=== PATIENT | female | born 1955 | race Caucasian/White ===

== ENCOUNTER 2020-08-07 05:36 | Inpatient (IN) ==
[2020-08-01 11:37] LABS: Bilirubin,Urine Negative (Negative); Blood, Urine Negative (Negative); Glucose,Urine (UA) Negative (Negative); Hyaline Casts,Urine 9 /LPF (0-3); Ketones,Urine 5 mg/dL (Negative); Mucus,Urine Occasional /LPF (Occasional); Nitrite,Urine Negative (Negative); Protein,Urine Negative; RBC,Urine 6 /HPF (0-4); Squamous Epithelial Cell,Urine Occasional /HPF (0-10); Urine Appearance Slightly Hazy (Clear); Urine Color Amber (Yellow); Urine Specific Gravity 1.029 (1.001-1.035); WBC,Urine 2 /HPF (0-6)
[2020-08-01 11:56] LABS: Basophils % 0.6 % (0.0-0.8); Eosinophils # 0.1 10*3/uL (0.0-0.87); Eosinophils % 2.2 % (0.00-10.9); Hematocrit 35.7 VOL% (35.7-47.0); Hemoglobin 10.5 GM/DL (12.0-16.0); Immature Granulocytes % 0.3 %; Immature Granulocytes Absolute 0.02 #; Lymphocytes # 2.1 10*3/uL (1.4-4.0); Lymphocytes % 32.5 % (21.3-54.2); Mean Corpuscular HGB Conc 29.4 GM/DL (32-36); Mean Corpuscular Volume 90.2 FL (87-102); Mean Platelet Volume 8.7 FL (9.6-12.0); Monocytes % 8.4 % (1.7-12.7); Platelet Count 307 T/CUMM (130-400); Red Blood Count 3.96 MC/CUMM (3.8-5.5); Red Cell Distribution Width 18.1 % (9.3-17.3); White Blood Count 6.4 T/CUMM (4-12)
[2020-08-01 11:59] LABS: PT Patient Result 11.1 SECS (9.8-11.9); Partial Thromboplastin Time 28.2 SECS (23.9-33.8)
[2020-08-01 12:13] LABS: Albumin 3.5 G/DL (3.4-5.0); Bilirubin,Total 0.6 MG/DL (0.2-1.0); Calcium 9.3 MG/DL (8.5-10.1); Osmolality,Calculated 280.4 MOS/KG (273-304); Total Protein 6.8 G/DL (6.4-8.3)
[2020-08-07] MEDS ORDERED: FAMOTIDINE 20 MG TABLET PO ONE (06:47)
[2020-08-07] MEDS ORDERED: ACETAMINOPHEN 500 MG TABLET PO ONE (06:47)
[2020-08-07] MEDS ORDERED: DIAZEPAM 5 MG TABLET PO ONE (06:47)
[2020-08-07] MEDS ORDERED: TRANEXAMIC ACID 1,000 MG/10 ML VIAL ONE (06:54)
[2020-08-07] MEDS ORDERED: DEXAMETHASONE 4 MG/1 ML VIAL ONE (06:54)
[2020-08-07] MEDS ORDERED: ROPIVACAINE 0.5% 30 ML VIAL ONE (06:54)
[2020-08-07] MEDS ORDERED: ceFAZolin 1,000 MG in SYRINGE 1 EACH IV ONE (07:00)
[2020-08-07] MEDS ORDERED: VANCOMYCIN INJ 1,000 MG in SODIUM CHLORIDE 0.9% 250 ML IV ONE ×2 (07:00→18:00)
[2020-08-07] MEDS ORDERED: LACTATED RINGERS 1,000 ML IV SCH (07:00)
[2020-08-07] MEDS ORDERED: BACITRACIN OINT 0.9 GM PACK TOP ONE (08:17)
[2020-08-07] MEDS ORDERED: MAGNESIUM HYDROXIDE SUSP 30 ML UDCUP PO PRN (10:42)
[2020-08-07] MEDS ORDERED: MORPHINE 4 MG/1 ML VIAL IV PRN (10:42)
[2020-08-07] MEDS ORDERED: diphenhydrAMINE CAP 25 MG CAPSULE PO PRN (10:42)
[2020-08-07] MEDS ORDERED: ONDANSETRON 4 MG/2 ML VIAL IV PRN ×2 (10:42→11:10)
[2020-08-07] MEDS ORDERED: fentaNYL 100 MCG/2 ML VIAL ONE ×2 (11:04)
[2020-08-07] MEDS ORDERED: LIDOCAINE 2% 5 ML VIAL ONE (11:04)
[2020-08-07] MEDS ORDERED: GLYCOPYRROLATE 0.4 MG/2 ML VIAL ONE (11:04)
[2020-08-07] MEDS ORDERED: propofoL 200 MG/20 ML VIAL IV ONE (11:04)
[2020-08-07] MEDS ORDERED: DESFLURANE 1 UNIT/15 MINUTE INH ONE (11:04)
[2020-08-07] MEDS ORDERED: MIDAZOLAM 2 MG/2 ML VIAL ONE (11:04)
[2020-08-07] MEDS ORDERED: PHENYLEPHRINE 1 MG/10 ML SYRINGE IV ONE (11:05)
[2020-08-07] MEDS ORDERED: NEOSTIGMINE 10 MG/10 ML VIAL ONE (11:05)
[2020-08-07] MEDS ORDERED: ROCURONIUM 100 MG/10 ML VIAL IV ONE (11:05)
[2020-08-07] MEDS ORDERED: SODIUM CHLORIDE 0.9% 100 ML IV ONE (11:05)
[2020-08-07] MEDS ORDERED: KETOROLAC 30 MG/1 ML VIAL IV ONE (11:10)
[2020-08-07] MEDS: HYDROmorphone 2 MG/1 ML VIAL IV PRN ×4 (11:14→12:26)
[2020-08-07 11:24] LABS: Bacteria,Urine Occasional /HPF (Few); Bilirubin,Urine Negative (Negative); Blood, Urine Negative (Negative); Glucose,Urine (UA) Negative (Negative); Ketones,Urine 5 mg/dL (Negative); Nitrite,Urine Negative (Negative); Protein,Urine 30 MG/DL; RBC,Urine 7 /HPF (0-4); Squamous Epithelial Cell,Urine Occasional /HPF (0-10); Urine Appearance CLEAR (Clear); Urine Color Amber (Yellow); Urine Specific Gravity 1.038 (1.001-1.035); WBC,Urine 3 /HPF (0-6)
[2020-08-07] MEDS: LACTATED RINGERS 1,000 ML IV SCH (14:12)
[2020-08-07] MEDS: ceFAZolin 2,000 MG in PREMIX 1 EACH IV SCH (16:25)
[2020-08-07] MEDS: KETOROLAC 30 MG/1 ML VIAL IV SCH ×2 (16:42→21:35)
[2020-08-07] MEDS: MORPHINE 4 MG/1 ML VIAL IV PRN ×2 (16:43→22:53)
[2020-08-07] MEDS: NYSTATIN 500,000 UNIT/5 ML UDCUP PO SCH ×2 (16:44→21:46)
[2020-08-07] MEDS: DULoxetine 30 MG CAPSULE PO SCH (21:41)
[2020-08-07] MEDS: DOCUSATE SODIUM 100 MG CAPSULE PO SCH (21:41)
[2020-08-07] MEDS: APIXABAN 2.5 MG TABLET PO SCH (21:42)
[2020-08-07] MEDS: carvediloL 12.5 MG TABLET PO SCH (21:42)
[2020-08-07] MEDS: GABAPENTIN 400 MG CAPSULE PO SCH (21:42)
[2020-08-07] MEDS: traZODone 50 MG TABLET PO SCH (21:42)
[2020-08-07] MEDS: PRAMIPEXOLE 0.25 MG TABLET PO SCH (21:43)
[2020-08-07] MEDS: NYSTATIN CREAM 15 GM TUBE TOP SCH (21:46)
[2020-08-07] MEDS: ZINC OXIDE 20% OINT 28.35 GM TUBE TOP SCH (21:46)
[2020-08-07] MEDS: HYDROCORTISONE 2.5% CREAM 30 GM TUBE TOP SCH (21:53)
[2020-08-08] MEDS ORDERED: ceFAZolin 2,000 MG in PREMIX 1 EACH IV SCH (03:30)
[2020-08-08] MEDS: KETOROLAC 30 MG/1 ML VIAL IV SCH ×2 (03:48→09:21)
[2020-08-08] MEDS: ceFAZolin 2,000 MG in PREMIX 1 EACH IV SCH (04:32)
[2020-08-08 04:36] LABS: Basophils % 0.1 % (0.0-0.8); Hematocrit 26.8 VOL% (35.7-47.0); Immature Granulocytes % 0.6 %; Immature Granulocytes Absolute 0.04 #; Lymphocytes # 0.9 10*3/uL (1.4-4.0); Lymphocytes % 12.7 % (21.3-54.2); Mean Corpuscular HGB Conc 29.9 GM/DL (32-36); Mean Corpuscular Volume 89.9 FL (87-102); Mean Platelet Volume 8.9 FL (9.6-12.0); Monocytes % 5.9 % (1.7-12.7); Neutrophils % 80.7 % (38.7-73.9); Platelet Count 225 T/CUMM (130-400); Red Blood Count 2.98 MC/CUMM (3.8-5.5); Red Cell Distribution Width 17.9 % (9.3-17.3); White Blood Count 7.2 T/CUMM (4-12)
[2020-08-08 05:02] LABS: Calcium 8.7 MG/DL (8.5-10.1); Osmolality,Calculated 281.4 MOS/KG (273-304)
[2020-08-08] MEDS: LEVOTHYROXINE 50 MCG TABLET PO SCH (06:04)
[2020-08-08] MEDS ORDERED: FUROSEMIDE 40 MG TABLET PO ONE (06:29)
[2020-08-08] MEDS: ASPIRIN EC 81 MG TABLET PO SCH (09:20)
[2020-08-08] MEDS: NYSTATIN CREAM 15 GM TUBE TOP SCH ×2 (09:20→20:28)
[2020-08-08] MEDS: HYDROCORTISONE 2.5% CREAM 30 GM TUBE TOP SCH ×2 (09:20→20:28)
[2020-08-08] MEDS: APIXABAN 2.5 MG TABLET PO SCH ×2 (09:20→20:30)
[2020-08-08] MEDS: AMIODARONE 200 MG TABLET PO SCH (09:20)
[2020-08-08] MEDS: DOCUSATE SODIUM 100 MG CAPSULE PO SCH ×2 (09:20→20:30)
[2020-08-08] MEDS: NYSTATIN 500,000 UNIT/5 ML UDCUP PO SCH ×4 (09:20→20:35)
[2020-08-08] MEDS: carvediloL 12.5 MG TABLET PO SCH ×2 (09:20→23:14)
[2020-08-08] MEDS: PANTOPRAZOLE 40 MG TABLET PO SCH (09:20)
[2020-08-08] MEDS: DULoxetine 30 MG CAPSULE PO SCH ×2 (09:20→20:29)
[2020-08-08] MEDS: CHOLECALCIFEROL 5,000 UNIT TABLET PO SCH (09:21)
[2020-08-08] MEDS: ZINC OXIDE 20% OINT 28.35 GM TUBE TOP SCH ×2 (09:21→20:28)
[2020-08-08] MEDS: GABAPENTIN 400 MG CAPSULE PO SCH (20:30)
[2020-08-08] MEDS: traZODone 50 MG TABLET PO SCH (20:30)
[2020-08-08] MEDS: PRAMIPEXOLE 0.25 MG TABLET PO SCH (20:30)
[2020-08-08] MEDS ORDERED: SODIUM CHLORIDE 0.9% 500 ML IV ONE (22:50)
[2020-08-08 23:33] LABS: Hematocrit 26.2 VOL% (35.7-47.0); Hemoglobin 7.8 GM/DL (12.0-16.0)
[2020-08-09] MEDS: ACETAMINOPHEN 325 MG TABLET PO PRN ×4 (00:11→22:57)
[2020-08-09] MEDS ORDERED: SODIUM CHLORIDE 0.9% 1,000 ML IV PRN (01:43)
[2020-08-09] MEDS ORDERED: FUROSEMIDE 40 MG/4 ML VIAL IV ONE ×2 (01:45→07:30)
[2020-08-09] MEDS: LEVOTHYROXINE 50 MCG TABLET PO SCH (07:19)
[2020-08-09] MEDS: ZINC OXIDE 20% OINT 28.35 GM TUBE TOP SCH ×2 (09:51→21:22)
[2020-08-09] MEDS: NYSTATIN CREAM 15 GM TUBE TOP SCH ×2 (09:51→21:22)
[2020-08-09] MEDS: HYDROCORTISONE 2.5% CREAM 30 GM TUBE TOP SCH ×2 (09:51→21:22)
[2020-08-09] MEDS: DULoxetine 30 MG CAPSULE PO SCH ×2 (09:52→21:21)
[2020-08-09] MEDS: CHOLECALCIFEROL 5,000 UNIT TABLET PO SCH (09:52)
[2020-08-09] MEDS: NYSTATIN 500,000 UNIT/5 ML UDCUP PO SCH ×4 (09:52→21:21)
[2020-08-09] MEDS: DOCUSATE SODIUM 100 MG CAPSULE PO SCH ×2 (09:52→21:22)
[2020-08-09] MEDS: ASPIRIN EC 81 MG TABLET PO SCH (09:53)
[2020-08-09] MEDS: AMIODARONE 200 MG TABLET PO SCH (09:53)
[2020-08-09] MEDS: PANTOPRAZOLE 40 MG TABLET PO SCH (09:53)
[2020-08-09] MEDS: APIXABAN 2.5 MG TABLET PO SCH ×2 (09:54→21:23)
[2020-08-09] MEDS: carvediloL 12.5 MG TABLET PO SCH ×2 (11:47→21:22)
[2020-08-09] MEDS: LACTATED RINGERS 1,000 ML IV SCH (11:48)
[2020-08-09 12:52] LABS: Basophils % 0.3 % (0.0-0.8); Eosinophils % 0.6 % (0.00-10.9); Hematocrit 31.7 VOL% (35.7-47.0); Hemoglobin 9.6 GM/DL (12.0-16.0); Immature Granulocytes % 0.3 %; Immature Granulocytes Absolute 0.02 #; Lymphocytes # 1.5 10*3/uL (1.4-4.0); Mean Corpuscular HGB Conc 30.3 GM/DL (32-36); Mean Corpuscular Volume 91.4 FL (87-102); Mean Platelet Volume 8.6 FL (9.6-12.0); Neutrophils % 65.8 % (38.7-73.9); Platelet Count 236 T/CUMM (130-400); Red Blood Count 3.47 MC/CUMM (3.8-5.5); Red Cell Distribution Width 17.7 % (9.3-17.3); White Blood Count 6.2 T/CUMM (4-12)
[2020-08-09 13:10] LABS: Calcium 8.3 MG/DL (8.5-10.1); Osmolality,Calculated 282.7 MOS/KG (273-304)
[2020-08-09] MEDS: GABAPENTIN 400 MG CAPSULE PO SCH (21:21)
[2020-08-09] MEDS: traZODone 50 MG TABLET PO SCH (21:21)
[2020-08-09] MEDS: PRAMIPEXOLE 0.25 MG TABLET PO SCH (21:23)
[2020-08-10 04:16] LABS: Basophils % 0.5 % (0.0-0.8); Eosinophils # 0.1 10*3/uL (0.0-0.87); Eosinophils % 1.3 % (0.00-10.9); Hematocrit 30.1 VOL% (35.7-47.0); Hemoglobin 9.2 GM/DL (12.0-16.0); Immature Granulocytes % 0.3 %; Immature Granulocytes Absolute 0.02 #; Lymphocytes # 1.6 10*3/uL (1.4-4.0); Lymphocytes % 25.3 % (21.3-54.2); Mean Corpuscular HGB Conc 30.6 GM/DL (32-36); Mean Corpuscular Volume 89.6 FL (87-102); Mean Platelet Volume 8.6 FL (9.6-12.0); Monocytes % 9.8 % (1.7-12.7); Neutrophils % 62.8 % (38.7-73.9); Platelet Count 230 T/CUMM (130-400); Red Blood Count 3.36 MC/CUMM (3.8-5.5); Red Cell Distribution Width 17.5 % (9.3-17.3); White Blood Count 6.2 T/CUMM (4-12)
[2020-08-10] MEDS: LEVOTHYROXINE 50 MCG TABLET PO SCH (05:33)
[2020-08-10] MEDS: ASPIRIN EC 81 MG TABLET PO SCH (09:14)
[2020-08-10] MEDS: DOCUSATE SODIUM 100 MG CAPSULE PO SCH ×2 (09:14→21:30)
[2020-08-10] MEDS: carvediloL 12.5 MG TABLET PO SCH ×2 (09:14→21:30)
[2020-08-10] MEDS: AMIODARONE 200 MG TABLET PO SCH (09:14)
[2020-08-10] MEDS: APIXABAN 2.5 MG TABLET PO SCH ×2 (09:15→21:30)
[2020-08-10] MEDS: NYSTATIN 500,000 UNIT/5 ML UDCUP PO SCH ×4 (09:15→21:29)
[2020-08-10] MEDS: PANTOPRAZOLE 40 MG TABLET PO SCH (09:15)
[2020-08-10] MEDS: CHOLECALCIFEROL 5,000 UNIT TABLET PO SCH (09:15)
[2020-08-10] MEDS: DULoxetine 30 MG CAPSULE PO SCH ×2 (09:15→21:30)
[2020-08-10] MEDS: ZINC OXIDE 20% OINT 28.35 GM TUBE TOP SCH ×2 (11:48→21:30)
[2020-08-10] MEDS: HYDROCORTISONE 2.5% CREAM 30 GM TUBE TOP SCH ×2 (11:49→21:30)
[2020-08-10] MEDS: NYSTATIN CREAM 15 GM TUBE TOP SCH ×2 (11:49→21:30)
[2020-08-10] MEDS: PRAMIPEXOLE 0.25 MG TABLET PO SCH (21:30)
[2020-08-10] MEDS: traZODone 50 MG TABLET PO SCH (21:30)
[2020-08-10] MEDS: GABAPENTIN 400 MG CAPSULE PO SCH (21:30)
[2020-08-10] MEDS: ACETAMINOPHEN 325 MG TABLET PO PRN (21:37)
[2020-08-11] MEDS: LEVOTHYROXINE 50 MCG TABLET PO SCH (05:33)
[2020-08-11] MEDS: DOCUSATE SODIUM 100 MG CAPSULE PO SCH (09:48)
[2020-08-11] MEDS: ASPIRIN EC 81 MG TABLET PO SCH (09:48)
[2020-08-11] MEDS: DULoxetine 30 MG CAPSULE PO SCH (09:49)
[2020-08-11] MEDS: AMIODARONE 200 MG TABLET PO SCH (09:49)
[2020-08-11] MEDS: carvediloL 12.5 MG TABLET PO SCH (09:49)
[2020-08-11] MEDS: CHOLECALCIFEROL 5,000 UNIT TABLET PO SCH (09:50)
[2020-08-11] MEDS: APIXABAN 2.5 MG TABLET PO SCH (09:50)
[2020-08-11] MEDS: PANTOPRAZOLE 40 MG TABLET PO SCH (09:50)
[2020-08-11] MEDS: NYSTATIN 500,000 UNIT/5 ML UDCUP PO SCH ×2 (09:50→12:55)
[2020-08-11] MEDS: ZINC OXIDE 20% OINT 28.35 GM TUBE TOP SCH (09:53)
[2020-08-11] MEDS: NYSTATIN CREAM 15 GM TUBE TOP SCH (09:53)
[2020-08-11] MEDS: HYDROCORTISONE 2.5% CREAM 30 GM TUBE TOP SCH (09:53)
[2020-08-11] MEDS ORDERED: FLUCONAZOLE 150 MG TABLET PO SCH (11:00)
[2020-08-11 15:02] VITALS: BP 123/59
== END 2020-08-11 14:20 | disposition home health service (06) | DRG 470 ==
LOC: N.OR 05:36 → N.SDSINP 05:37 → N.3E 14:37
PROVIDERS: ADMIT Orthopaedic Surgery; ATTEND Orthopaedic Surgery

== ENCOUNTER 2020-12-25 17:18 | Inpatient (IN) ==
[2020-12-25] MEDS ORDERED: ONDANSETRON 4 MG/2 ML VIAL ONE (18:03)
[2020-12-25] MEDS ORDERED: ONDANSETRON 4 MG/2 ML VIAL IV STA (18:08)
[2020-12-25] MEDS ORDERED: LORazepam 2 MG/1 ML VIAL IV STA (18:14)
[2020-12-25] MEDS ORDERED: SODIUM CHLORIDE 0.9% 1,000 ML IV STA (18:15)
[2020-12-25 18:49] LABS: Basophils % 0.2 % (0.0-0.8); Eosinophils % 0.2 % (0.00-10.9); Hematocrit 37.2 VOL% (35.7-47.0); Hemoglobin 11.4 GM/DL (12.0-16.0); Immature Granulocytes % 0.8 %; Immature Granulocytes Absolute 0.05 #; Lymphocytes # 0.7 10*3/uL (1.4-4.0); Lymphocytes % 11.6 % (21.3-54.2); Mean Corpuscular HGB Conc 30.6 GM/DL (32-36); Mean Corpuscular Volume 95.1 FL (87-102); Mean Platelet Volume 8.2 FL (9.6-12.0); Monocytes % 4.7 % (1.7-12.7); Neutrophils % 82.5 % (38.7-73.9); Platelet Count 234 T/CUMM (130-400); Red Blood Count 3.91 MC/CUMM (3.8-5.5); Red Cell Distribution Width 17.2 % (9.3-17.3); White Blood Count 6.1 T/CUMM (4-12)
[2020-12-25 19:10] LABS: Albumin 3.1 G/DL (3.4-5.0); Calcium 9.1 MG/DL (8.5-10.1); Osmolality,Calculated 277.7 MOS/KG (273-304); Potassium 3.8 MMOL/L (3.5-5.1); Total Protein 6.8 G/DL (5.0-7.5)
[2020-12-25] MEDS ORDERED: PROMETHAZINE 25 MG/1 ML VIAL IM STA (19:17)
[2020-12-25] MEDS ORDERED: METOCLOPRAMIDE 10 MG/2 ML VIAL IV STA (20:10)
[2020-12-25] MEDS ORDERED: diphenhydrAMINE 50 MG/1 ML VIAL IV STA (20:10)
[2020-12-25] MEDS ORDERED: DEXAMETHASONE 4 MG/1 ML VIAL IV STA (20:10)
[2020-12-25 21:54] LABS: Bilirubin,Urine Negative (Negative); Blood, Urine Moderate mg/dL (Negative); Glucose,Urine (UA) Negative (Negative); Ketones,Urine 20 mg/dL (Negative); Mucus,Urine Few /LPF (Occasional); Nitrite,Urine Negative (Negative); Protein,Urine 30 MG/DL; RBC,Urine 45 /HPF (0-4); Squamous Epithelial Cell,Urine Occasional /HPF (0-10); Urine Appearance CLOUDY (Clear); Urine Color Amber (Yellow); Urine Specific Gravity 1.023 (1.001-1.035)
[2020-12-25] MEDS ORDERED: PROMETHAZINE INJ 12.5 MG in SODIUM CHLORIDE 0.9% 50 ML IV STA (22:07)
[2020-12-26] MEDS: PHENOL 1.4% THROAT SPRAY 177 ML BOTTLE PO PRN ×3 (00:37→05:03)
[2020-12-26] MEDS: SODIUM CHLORIDE 0.45% 1,000 ML IV SCH ×3 (00:38→12:04)
[2020-12-26] MEDS: PANTOPRAZOLE 40 MG TABLET PO SCH (08:13)
[2020-12-26] MEDS ORDERED: INFLUENZA VIRUS VACCINE 0.5 ML SYRINGE IM ONE (09:00)
[2020-12-26] MEDS ORDERED: DULoxetine 30 MG CAPSULE PO SCH (10:30)
[2020-12-26] MEDS ORDERED: carvediloL 12.5 MG TABLET PO SCH (10:30)
[2020-12-26] MEDS ORDERED: AMIODARONE 200 MG TABLET PO SCH (10:30)
[2020-12-26] MEDS: HYDROmorphone 2 MG/1 ML VIAL IV PRN ×2 (11:16→18:23)
[2020-12-26 11:51] LABS: Thyroid Stimulating Hormone 3.4 uIU/ml (0.358-3.74)
[2020-12-26] MEDS ORDERED: METOPROLOL TARTRATE 5 MG/5 ML VIAL IV PRN (12:52)
[2020-12-26] MEDS ORDERED: hydrALAZINE 20 MG/1 ML VIAL IV PRN (17:30)
[2020-12-26 17:55] LABS: Risk Ratio 1.95; VLDL CHOLESTEROL 15.8 MG/DL
[2020-12-27] MEDS: SODIUM CHLORIDE 0.45% 1,000 ML IV SCH ×3 (00:35→15:49)
[2020-12-27 05:48] LABS: Basophils % 0.3 % (0.0-0.8); Eosinophils % 0.1 % (0.00-10.9); Hematocrit 38.1 VOL% (35.7-47.0); Hemoglobin 11.9 GM/DL (12.0-16.0); Immature Granulocytes Absolute 0.08 #; Lymphocytes # 1.3 10*3/uL (1.4-4.0); Lymphocytes % 17.4 % (21.3-54.2); Mean Corpuscular HGB Conc 31.2 GM/DL (32-36); Mean Corpuscular Volume 94.3 FL (87-102); Mean Platelet Volume 8.4 FL (9.6-12.0); Monocytes % 10.3 % (1.7-12.7); Neutrophils % 70.9 % (38.7-73.9); Platelet Count 256 T/CUMM (130-400); Red Blood Count 4.04 MC/CUMM (3.8-5.5); Red Cell Distribution Width 17.5 % (9.3-17.3); White Blood Count 7.7 T/CUMM (4-12)
[2020-12-27 06:07] LABS: Albumin 2.6 G/DL (3.4-5.0); Bilirubin,Total 1.6 MG/DL (0.2-1.0); Calcium 8.4 MG/DL (8.5-10.1); Osmolality,Calculated 276.7 MOS/KG (273-304); Potassium 3.7 MMOL/L (3.5-5.1); Total Protein 5.9 G/DL (5.0-7.5)
[2020-12-27] MEDS ORDERED: LEVOTHYROXINE 50 MCG TABLET PO SCH (07:00)
[2020-12-27] MEDS ORDERED: MAGNESIUM SULF RIDER 4 GM in PREMIX 1 EACH IV PRN (07:16)
[2020-12-27] MEDS ORDERED: MAGNESIUM SULF RIDER 2 GM in PREMIX 1 EACH IV PRN (07:16)
[2020-12-27] MEDS: PANTOPRAZOLE 40 MG TABLET PO SCH (08:05)
[2020-12-27] MEDS: HYDROmorphone 2 MG/1 ML VIAL IV PRN (10:28)
[2020-12-27] MEDS: ONDANSETRON 4 MG/2 ML VIAL IV PRN (10:40)
[2020-12-27] MEDS: PANTOPRAZOLE 40 MG VIAL IV SCH ×2 (11:34→21:40)
[2020-12-28] MEDS: ONDANSETRON 4 MG/2 ML VIAL IV PRN ×2 (00:37→22:00)
[2020-12-28] MEDS: SODIUM CHLORIDE 0.45% 1,000 ML IV SCH ×2 (00:38→09:28)
[2020-12-28 06:14] LABS: Calcium 8.3 MG/DL (8.5-10.1); Osmolality,Calculated 273.7 MOS/KG (273-304); Potassium 3.6 MMOL/L (3.5-5.1)
[2020-12-28] MEDS: PANTOPRAZOLE 40 MG VIAL IV SCH ×2 (09:29→21:17)
[2020-12-28] MEDS ORDERED: diphenhydrAMINE 50 MG/1 ML VIAL IV PRN (10:42)
[2020-12-28] MEDS: DEXT 5% NACL 0.45% KCL 10 MEQ 10 MEQ/1,000 ML BAG IV SCH ×2 (12:15→21:01)
[2020-12-28] MEDS: ENOXAPARIN 100 MG/ML SYRINGE SUBCUT SCH ×2 (12:16→23:59)
[2020-12-28] MEDS: traZODone 50 MG TABLET PO SCH (21:06)
[2020-12-29 04:27] LABS: Basophils % 0.4 % (0.0-0.8); Eosinophils # 0.1 10*3/uL (0.0-0.87); Eosinophils % 0.9 % (0.00-10.9); Hematocrit 37.6 VOL% (35.7-47.0); Hemoglobin 11.5 GM/DL (12.0-16.0); Immature Granulocytes % 0.9 %; Immature Granulocytes Absolute 0.06 #; Lymphocytes # 1.5 10*3/uL (1.4-4.0); Lymphocytes % 22.3 % (21.3-54.2); Mean Corpuscular HGB Conc 30.6 GM/DL (32-36); Mean Corpuscular Volume 94.2 FL (87-102); Mean Platelet Volume 8.6 FL (9.6-12.0); Monocytes % 9.8 % (1.7-12.7); Neutrophils % 65.7 % (38.7-73.9); Platelet Count 279 T/CUMM (130-400); Red Blood Count 3.99 MC/CUMM (3.8-5.5); Red Cell Distribution Width 17.4 % (9.3-17.3); White Blood Count 6.7 T/CUMM (4-12)
[2020-12-29] MEDS: DEXT 5% NACL 0.45% KCL 10 MEQ 10 MEQ/1,000 ML BAG IV SCH ×3 (04:45→21:11)
[2020-12-29 04:56] LABS: Albumin 2.4 G/DL (3.4-5.0); Calcium 8.4 MG/DL (8.5-10.1); Osmolality,Calculated 274.7 MOS/KG (273-304); Potassium 3.5 MMOL/L (3.5-5.1); Total Protein 5.6 G/DL (5.0-7.5)
[2020-12-29] MEDS: PANTOPRAZOLE 40 MG VIAL IV SCH ×2 (08:22→20:15)
[2020-12-29] MEDS: ONDANSETRON 4 MG/2 ML VIAL IV PRN (08:23)
[2020-12-29] MEDS ORDERED: AMIODARONE 200 MG TABLET PO SCH (12:33)
[2020-12-29] MEDS: ENOXAPARIN 100 MG/ML SYRINGE SUBCUT SCH (12:38)
[2020-12-29] MEDS: traZODone 50 MG TABLET PO SCH (20:15)
[2020-12-30] MEDS: ENOXAPARIN 100 MG/ML SYRINGE SUBCUT SCH (00:27)
[2020-12-30] MEDS: DEXT 5% NACL 0.45% KCL 10 MEQ 10 MEQ/1,000 ML BAG IV SCH (05:32)
[2020-12-30 05:52] LABS: Basophils # 0.1 10*3/uL (0.0-0.2); Basophils % 0.8 % (0.0-0.8); Eosinophils # 0.1 10*3/uL (0.0-0.87); Eosinophils % 2.2 % (0.00-10.9); Hematocrit 36.2 VOL% (35.7-47.0); Hemoglobin 11.2 GM/DL (12.0-16.0); Immature Granulocytes % 0.8 %; Immature Granulocytes Absolute 0.05 #; Lymphocytes # 1.6 10*3/uL (1.4-4.0); Lymphocytes % 26.8 % (21.3-54.2); Mean Corpuscular HGB Conc 30.9 GM/DL (32-36); Mean Corpuscular Volume 94.5 FL (87-102); Mean Platelet Volume 8.8 FL (9.6-12.0); Monocytes % 9.6 % (1.7-12.7); Neutrophils % 59.8 % (38.7-73.9); Platelet Count 276 T/CUMM (130-400); Red Blood Count 3.83 MC/CUMM (3.8-5.5)
[2020-12-30 06:16] LABS: Albumin 2.3 G/DL (3.4-5.0); Bilirubin,Total 0.7 MG/DL (0.2-1.0); Calcium 8.3 MG/DL (8.5-10.1); Osmolality,Calculated 282.1 MOS/KG (273-304); Potassium 3.7 MMOL/L (3.5-5.1); Total Protein 5.4 G/DL (5.0-7.5)
[2020-12-30] MEDS: PANTOPRAZOLE 40 MG VIAL IV SCH (08:34)
[2020-12-30] MEDS ORDERED: AMIODARONE 200 MG TABLET PO SCH (09:00)
[2020-12-30 12:14] VITALS: BP 139/81
[2020-12-30] MEDS ORDERED: carvediloL 12.5 MG TABLET PO SCH (21:00)
[2020-12-30] MEDS ORDERED: PRAMIPEXOLE 0.25 MG TABLET PO SCH (21:00)
[2020-12-30] MEDS ORDERED: APIXABAN 5 MG TABLET PO SCH (21:00)
[2020-12-31] MEDS ORDERED: ASPIRIN EC 81 MG TABLET PO SCH (09:00)
== END 2020-12-30 15:15 | disposition home or self-care (01) | DRG 389 ==
LOC: N.ED 17:18 → N.EDINP 20:57 → N.3E 12-26 00:01
PROVIDERS: ADMIT Surgery; ATTEND Surgery

== ENCOUNTER 2021-01-09 15:31 | Inpatient (IN) ==
[2021-01-09] MEDS ORDERED: ONDANSETRON 4 MG/2 ML VIAL IV STA (16:07)
[2021-01-09] MEDS ORDERED: HYDROmorphone 2 MG/1 ML VIAL IV STA (16:07)
[2021-01-09] MEDS ORDERED: KETOROLAC 30 MG/1 ML VIAL IV STA (16:07)
[2021-01-09 16:34] LABS: Basophils # 0.1 10*3/uL (0.0-0.2); Basophils % 1.1 % (0.0-0.8); Eosinophils # 0.1 10*3/uL (0.0-0.87); Eosinophils % 1.3 % (0.00-10.9); Hematocrit 42.6 VOL% (35.7-47.0); Hemoglobin 13.3 GM/DL (12.0-16.0); Immature Granulocytes % 0.3 %; Immature Granulocytes Absolute 0.02 #; Lymphocytes # 2.4 10*3/uL (1.4-4.0); Lymphocytes % 37.2 % (21.3-54.2); Mean Corpuscular HGB Conc 31.2 GM/DL (32-36); Mean Corpuscular Volume 95.1 FL (87-102); Mean Platelet Volume 8.3 FL (9.6-12.0); Neutrophils % 52.1 % (38.7-73.9); Platelet Count 356 T/CUMM (130-400); Red Blood Count 4.48 MC/CUMM (3.8-5.5); Red Cell Distribution Width 18.6 % (9.3-17.3); White Blood Count 6.4 T/CUMM (4-12)
[2021-01-09 16:48] LABS: Albumin 3.5 G/DL (3.4-5.0); Bilirubin,Total 0.8 MG/DL (0.2-1.0); Calcium 9.2 MG/DL (8.5-10.1); Potassium 5.4 MMOL/L (3.5-5.1); Total Protein 6.9 G/DL (6.4-8.2)
[2021-01-09] MEDS ORDERED: DEXTROSE 50% 25 GM/50 ML VIAL IV PRN (18:05)
[2021-01-09] MEDS ORDERED: GLUCAGON 1 MG VIAL IM PRN (18:05)
[2021-01-09] MEDS: DULoxetine 30 MG CAPSULE PO SCH (21:59)
[2021-01-09] MEDS: carvediloL 12.5 MG TABLET PO SCH (22:00)
[2021-01-09] MEDS: PRAMIPEXOLE 0.25 MG TABLET PO SCH (22:00)
[2021-01-09] MEDS: HYDROmorphone 2 MG/1 ML VIAL IV PRN (22:00)
[2021-01-09] MEDS: FUROSEMIDE 40 MG TABLET PO SCH (22:00)
[2021-01-09] MEDS: ONDANSETRON 4 MG/2 ML VIAL IV PRN (22:02)
[2021-01-10] MEDS: ALUMINUM/MAGNES/SIMETH MAX STR 30 ML UDCUP PO PRN ×2 (03:13→21:09)
[2021-01-10] MEDS: ONDANSETRON 4 MG/2 ML VIAL IV PRN ×4 (05:40→21:10)
[2021-01-10] MEDS: HYDROmorphone 2 MG/1 ML VIAL IV PRN ×4 (05:42→21:12)
[2021-01-10 06:08] LABS: Albumin 2.7 G/DL (3.4-5.0); Bilirubin,Total 0.8 MG/DL (0.2-1.0); Calcium 8.7 MG/DL (8.5-10.1); Osmolality,Calculated 273.1 MOS/KG (273-304); Potassium 4.2 MMOL/L (3.5-5.1); Total Protein 6.2 G/DL (6.4-8.2)
[2021-01-10 06:14] LABS: Basophils % 0.6 % (0.0-0.8); Eosinophils # 0.1 10*3/uL (0.0-0.87); Eosinophils % 1.2 % (0.00-10.9); Hematocrit 38.7 VOL% (35.7-47.0); Hemoglobin 11.5 GM/DL (12.0-16.0); Immature Granulocytes % 0.6 %; Immature Granulocytes Absolute 0.04 #; Lymphocytes # 1.6 10*3/uL (1.4-4.0); Lymphocytes % 23.8 % (21.3-54.2); Mean Corpuscular HGB Conc 29.7 GM/DL (32-36); Mean Platelet Volume 8.4 FL (9.6-12.0); Monocytes % 9.5 % (1.7-12.7); Neutrophils % 64.3 % (38.7-73.9); Platelet Count 346 T/CUMM (130-400); Red Blood Count 3.91 MC/CUMM (3.8-5.5); Red Cell Distribution Width 18.3 % (9.3-17.3); White Blood Count 6.7 T/CUMM (4-12)
[2021-01-10] MEDS: LEVOTHYROXINE 50 MCG TABLET PO SCH (06:26)
[2021-01-10] MEDS: carvediloL 12.5 MG TABLET PO SCH ×2 (08:49→21:10)
[2021-01-10] MEDS: SODIUM CHLORIDE 0.9% 1,000 ML IV SCH ×2 (09:16→17:11)
[2021-01-10] MEDS: AMIODARONE 200 MG TABLET PO SCH (09:17)
[2021-01-10] MEDS: CHOLECALCIFEROL 5,000 UNIT TABLET PO SCH (09:17)
[2021-01-10] MEDS: DULoxetine 30 MG CAPSULE PO SCH ×2 (09:17→21:10)
[2021-01-10] MEDS: ASPIRIN EC 81 MG TABLET PO SCH (09:17)
[2021-01-10] MEDS: POLYETHYLENE GLYCOL POWDER 17 GM PACK PO SCH (21:09)
[2021-01-10] MEDS: PRAMIPEXOLE 0.25 MG TABLET PO SCH (21:10)
[2021-01-10] MEDS: DOCUSATE SODIUM 100 MG CAPSULE PO SCH (21:10)
[2021-01-11] MEDS: SODIUM CHLORIDE 0.9% 1,000 ML IV SCH ×2 (04:48→12:24)
[2021-01-11] MEDS: HYDROmorphone 2 MG/1 ML VIAL IV PRN ×5 (04:48→20:56)
[2021-01-11] MEDS: ONDANSETRON 4 MG/2 ML VIAL IV PRN ×5 (04:49→20:57)
[2021-01-11] MEDS: LEVOTHYROXINE 50 MCG TABLET PO SCH (06:45)
[2021-01-11] MEDS: CHOLECALCIFEROL 5,000 UNIT TABLET PO SCH (08:49)
[2021-01-11] MEDS: DULoxetine 30 MG CAPSULE PO SCH ×2 (08:49→20:54)
[2021-01-11] MEDS: AMIODARONE 200 MG TABLET PO SCH (08:49)
[2021-01-11] MEDS: ASPIRIN EC 81 MG TABLET PO SCH (08:49)
[2021-01-11] MEDS: carvediloL 12.5 MG TABLET PO SCH ×2 (08:49→20:55)
[2021-01-11] MEDS: POLYETHYLENE GLYCOL POWDER 17 GM PACK PO SCH ×2 (08:49→20:55)
[2021-01-11] MEDS: DOCUSATE SODIUM 100 MG CAPSULE PO SCH (20:55)
[2021-01-11] MEDS: PRAMIPEXOLE 0.25 MG TABLET PO SCH (20:55)
[2021-01-11] MEDS: ALUMINUM/MAGNES/SIMETH MAX STR 30 ML UDCUP PO PRN (21:01)
[2021-01-11] MEDS: traZODone 50 MG TABLET PO SCH (21:44)
[2021-01-11] MEDS: NYSTATIN 500,000 UNIT/5 ML UDCUP SWISH/SWAL SCH (21:44)
[2021-01-12] MEDS: SODIUM CHLORIDE 0.9% 1,000 ML IV SCH ×2 (04:19→16:01)
[2021-01-12] MEDS: ONDANSETRON 4 MG/2 ML VIAL IV PRN (04:20)
[2021-01-12] MEDS: HYDROmorphone 2 MG/1 ML VIAL IV PRN ×4 (04:20→21:33)
[2021-01-12] MEDS: LEVOTHYROXINE 50 MCG TABLET PO SCH (06:04)
[2021-01-12] MEDS: ASPIRIN EC 81 MG TABLET PO SCH (08:14)
[2021-01-12] MEDS: AMIODARONE 200 MG TABLET PO SCH (08:15)
[2021-01-12] MEDS: CHOLECALCIFEROL 5,000 UNIT TABLET PO SCH (08:15)
[2021-01-12] MEDS: carvediloL 12.5 MG TABLET PO SCH (08:28)
[2021-01-12] MEDS: DULoxetine 30 MG CAPSULE PO SCH ×2 (08:29→20:54)
[2021-01-12] MEDS: NYSTATIN 500,000 UNIT/5 ML UDCUP SWISH/SWAL SCH ×4 (08:30→20:55)
[2021-01-12] MEDS: POLYETHYLENE GLYCOL POWDER 17 GM PACK PO SCH ×2 (08:30→20:57)
[2021-01-12] MEDS ORDERED: HYDROmorphone 2 MG/1 ML VIAL IV ONE (11:15)
[2021-01-12] MEDS ORDERED: LACTULOSE 20 GM/30 ML UDCUP PO PRN (11:18)
[2021-01-12] MEDS ORDERED: ENOXAPARIN 80 MG/0.8 ML SYRINGE SUBCUT ONE (12:00)
[2021-01-12] MEDS: DOCUSATE SODIUM 100 MG CAPSULE PO SCH (20:53)
[2021-01-12] MEDS: traZODone 50 MG TABLET PO SCH (20:54)
[2021-01-12] MEDS: carvediloL 6.25 MG TABLET PO SCH (20:55)
[2021-01-12] MEDS: PRAMIPEXOLE 0.25 MG TABLET PO SCH (20:55)
[2021-01-13] MEDS: SODIUM CHLORIDE 0.9% 1,000 ML IV SCH ×2 (01:34→13:57)
[2021-01-13] MEDS: ALUMINUM/MAGNES/SIMETH MAX STR 30 ML UDCUP PO PRN (01:36)
[2021-01-13] MEDS: LEVOTHYROXINE 50 MCG TABLET PO SCH (06:22)
[2021-01-13] MEDS: HYDROmorphone 2 MG/1 ML VIAL IV PRN ×4 (06:23→21:12)
[2021-01-13] MEDS: NYSTATIN 500,000 UNIT/5 ML UDCUP SWISH/SWAL SCH ×4 (08:44→21:14)
[2021-01-13] MEDS: ASPIRIN EC 81 MG TABLET PO SCH (08:44)
[2021-01-13] MEDS: DULoxetine 30 MG CAPSULE PO SCH ×2 (08:44→21:12)
[2021-01-13] MEDS: AMIODARONE 200 MG TABLET PO SCH (08:45)
[2021-01-13] MEDS: CHOLECALCIFEROL 5,000 UNIT TABLET PO SCH (08:45)
[2021-01-13] MEDS: carvediloL 6.25 MG TABLET PO SCH ×2 (08:45→21:12)
[2021-01-13] MEDS: POLYETHYLENE GLYCOL POWDER 17 GM PACK PO SCH ×2 (08:46→21:11)
[2021-01-13 12:23] LABS: Basophils # 0.1 10*3/uL (0.0-0.2); Basophils % 1.2 % (0.0-0.8); Eosinophils # 0.1 10*3/uL (0.0-0.87); Eosinophils % 2.1 % (0.00-10.9); Hematocrit 34.1 VOL% (35.7-47.0); Hemoglobin 10.4 GM/DL (12.0-16.0); Immature Granulocytes % 0.7 %; Immature Granulocytes Absolute 0.03 #; Lymphocytes # 1.2 10*3/uL (1.4-4.0); Lymphocytes % 29.2 % (21.3-54.2); Mean Corpuscular HGB Conc 30.5 GM/DL (32-36); Mean Corpuscular Volume 96.9 FL (87-102); Mean Platelet Volume 8.5 FL (9.6-12.0); Neutrophils % 58.8 % (38.7-73.9); Platelet Count 292 T/CUMM (130-400); Red Blood Count 3.52 MC/CUMM (3.8-5.5); Red Cell Distribution Width 18.4 % (9.3-17.3); White Blood Count 4.2 T/CUMM (4-12)
[2021-01-13 12:38] LABS: Calcium 8.6 MG/DL (8.5-10.1); Osmolality,Calculated 277.5 MOS/KG (273-304); Potassium 4.5 MMOL/L (3.5-5.1)
[2021-01-13] MEDS: ONDANSETRON 4 MG/2 ML VIAL IV PRN ×2 (14:48→21:12)
[2021-01-13] MEDS: DOCUSATE SODIUM 100 MG CAPSULE PO SCH (21:12)
[2021-01-13] MEDS: PRAMIPEXOLE 0.25 MG TABLET PO SCH (21:12)
[2021-01-13] MEDS: traZODone 50 MG TABLET PO SCH (21:12)
[2021-01-14] MEDS: HYDROmorphone 2 MG/1 ML VIAL IV PRN ×6 (03:11→22:17)
[2021-01-14] MEDS: ONDANSETRON 4 MG/2 ML VIAL IV PRN ×3 (03:11→22:15)
[2021-01-14 05:53] LABS: Basophils # 0.1 10*3/uL (0.0-0.2); Eosinophils # 0.2 10*3/uL (0.0-0.87); Eosinophils % 3.4 % (0.00-10.9); Hematocrit 33.6 VOL% (35.7-47.0); Immature Granulocytes % 0.4 %; Immature Granulocytes Absolute 0.02 #; Lymphocytes # 1.9 10*3/uL (1.4-4.0); Lymphocytes % 38.2 % (21.3-54.2); Mean Corpuscular HGB Conc 29.8 GM/DL (32-36); Mean Corpuscular Volume 99.7 FL (87-102); Mean Platelet Volume 8.5 FL (9.6-12.0); Monocytes % 9.7 % (1.7-12.7); Neutrophils % 47.3 % (38.7-73.9); Platelet Count 288 T/CUMM (130-400); Red Blood Count 3.37 MC/CUMM (3.8-5.5); Red Cell Distribution Width 18.5 % (9.3-17.3); White Blood Count 5.1 T/CUMM (4-12)
[2021-01-14 06:21] LABS: Albumin 2.6 G/DL (3.4-5.0); Calcium 8.7 MG/DL (8.5-10.1); Osmolality,Calculated 277.5 MOS/KG (273-304); Potassium 4.2 MMOL/L (3.5-5.1); Total Protein 5.5 G/DL (6.4-8.2)
[2021-01-14] MEDS: NYSTATIN 500,000 UNIT/5 ML UDCUP SWISH/SWAL SCH ×4 (09:06→22:15)
[2021-01-14] MEDS: DULoxetine 30 MG CAPSULE PO SCH ×2 (09:07→22:15)
[2021-01-14] MEDS: LEVOTHYROXINE 50 MCG TABLET PO SCH (09:07)
[2021-01-14] MEDS: AMIODARONE 200 MG TABLET PO SCH (09:07)
[2021-01-14] MEDS: CHOLECALCIFEROL 5,000 UNIT TABLET PO SCH (09:07)
[2021-01-14] MEDS: carvediloL 6.25 MG TABLET PO SCH ×2 (09:07→22:15)
[2021-01-14] MEDS: POLYETHYLENE GLYCOL POWDER 17 GM PACK PO SCH ×2 (09:09→22:15)
[2021-01-14] MEDS: ASPIRIN EC 81 MG TABLET PO SCH (09:09)
[2021-01-14] MEDS ORDERED: ROPIVACAINE 0.5% 30 ML VIAL ONE (11:16)
[2021-01-14] MEDS ORDERED: TISSUE ADHESIVE 1 EACH APPLICATOR TOP ONE (11:19)
[2021-01-14] MEDS ORDERED: KETAMINE 500 MG/10 ML VIAL ONE (11:24)
[2021-01-14] MEDS ORDERED: MIDAZOLAM 2 MG/2 ML VIAL ONE ×2 (11:24→12:13)
[2021-01-14] MEDS ORDERED: DEXMEDETOMIDINE 200 MCG/2 ML VIAL ONE (12:11)
[2021-01-14] MEDS ORDERED: propofoL 200 MG/20 ML VIAL IV ONE (12:12)
[2021-01-14] MEDS ORDERED: ceFAZolin 1,000 MG VIAL ONE (12:16)
[2021-01-14] MEDS ORDERED: LACTATED RINGERS 1,000 ML IV SCH (12:30)
[2021-01-14] MEDS ORDERED: LIDOCAINE 2% 5 ML VIAL ONE (12:30)
[2021-01-14] MEDS ORDERED: ONDANSETRON 4 MG/2 ML VIAL IV PRN (12:49)
[2021-01-14] MEDS: LACTULOSE 20 GM/30 ML UDCUP PO PRN (16:54)
[2021-01-14] MEDS: traZODone 50 MG TABLET PO SCH (22:15)
[2021-01-14] MEDS: PRAMIPEXOLE 0.25 MG TABLET PO SCH (22:15)
[2021-01-14] MEDS: ALUMINUM/MAGNES/SIMETH MAX STR 30 ML UDCUP PO PRN (22:15)
[2021-01-14] MEDS: DOCUSATE SODIUM 100 MG CAPSULE PO SCH (22:15)
[2021-01-15] MEDS: LACTULOSE 20 GM/30 ML UDCUP PO PRN ×2 (00:37→06:25)
[2021-01-15 05:17] LABS: Basophils % 0.8 % (0.0-0.8); Eosinophils # 0.2 10*3/uL (0.0-0.87); Eosinophils % 3.2 % (0.00-10.9); Hematocrit 33.9 VOL% (35.7-47.0); Hemoglobin 10.1 GM/DL (12.0-16.0); Immature Granulocytes % 0.4 %; Immature Granulocytes Absolute 0.02 #; Lymphocytes # 1.4 10*3/uL (1.4-4.0); Lymphocytes % 27.5 % (21.3-54.2); Mean Corpuscular HGB Conc 29.8 GM/DL (32-36); Mean Corpuscular Volume 100.3 FL (87-102); Mean Platelet Volume 8.5 FL (9.6-12.0); Monocytes % 8.8 % (1.7-12.7); Neutrophils % 59.3 % (38.7-73.9); Platelet Count 255 T/CUMM (130-400); Red Blood Count 3.38 MC/CUMM (3.8-5.5); Red Cell Distribution Width 18.3 % (9.3-17.3)
[2021-01-15 06:04] LABS: Calcium 8.8 MG/DL (8.5-10.1); Osmolality,Calculated 277.5 MOS/KG (273-304); Potassium 4.1 MMOL/L (3.5-5.1)
[2021-01-15] MEDS: LEVOTHYROXINE 50 MCG TABLET PO SCH (06:25)
[2021-01-15] MEDS: DULoxetine 30 MG CAPSULE PO SCH ×2 (09:08→21:01)
[2021-01-15] MEDS: ASPIRIN EC 81 MG TABLET PO SCH (09:08)
[2021-01-15] MEDS: POLYETHYLENE GLYCOL POWDER 17 GM PACK PO SCH ×2 (09:09→21:03)
[2021-01-15] MEDS: carvediloL 6.25 MG TABLET PO SCH ×2 (09:09→21:02)
[2021-01-15] MEDS: CHOLECALCIFEROL 5,000 UNIT TABLET PO SCH (09:09)
[2021-01-15] MEDS: AMIODARONE 200 MG TABLET PO SCH (09:09)
[2021-01-15] MEDS: NYSTATIN 500,000 UNIT/5 ML UDCUP SWISH/SWAL SCH ×4 (09:09→21:03)
[2021-01-15] MEDS: HYDROmorphone 2 MG/1 ML VIAL IV PRN ×3 (12:12→21:37)
[2021-01-15] MEDS: ONDANSETRON 4 MG/2 ML VIAL IV PRN (16:35)
[2021-01-15 17:58] LABS: Bilirubin,Urine Negative (Negative); Blood, Urine Small mg/dL (Negative); Glucose,Urine (UA) Negative (Negative); Hyaline Casts,Urine 12 /LPF (0-3); Ketones,Urine 5 mg/dL (Negative); Mucus,Urine Many /LPF (Occasional); Nitrite,Urine Negative (Negative); Protein,Urine Negative; RBC,Urine 10 /HPF (0-4); Squamous Epithelial Cell,Urine Occasional /HPF (0-10); Urine Appearance Slightly Hazy (Clear); Urine Color Amber (Yellow); Urine Specific Gravity 1.025 (1.001-1.035); WBC,Urine 34 /HPF (0-6)
[2021-01-15] MEDS: traZODone 50 MG TABLET PO SCH (21:01)
[2021-01-15] MEDS: DOCUSATE SODIUM 100 MG CAPSULE PO SCH (21:02)
[2021-01-15] MEDS: PRAMIPEXOLE 0.25 MG TABLET PO SCH (21:02)
[2021-01-15] MEDS: APIXABAN 5 MG TABLET PO SCH (21:02)
[2021-01-15] MEDS: FUROSEMIDE 40 MG TABLET PO SCH (21:03)
[2021-01-15] MEDS: ALUMINUM/MAGNES/SIMETH MAX STR 30 ML UDCUP PO PRN (21:38)
[2021-01-16] MEDS: ONDANSETRON 4 MG/2 ML VIAL IV PRN ×2 (00:15→09:41)
[2021-01-16] MEDS: HYDROmorphone 2 MG/1 ML VIAL IV PRN ×3 (02:10→12:32)
[2021-01-16] MEDS ORDERED: LEVOTHYROXINE 75 MCG TABLET PO SCH (06:30)
[2021-01-16] MEDS: POLYETHYLENE GLYCOL POWDER 17 GM PACK PO SCH (09:34)
[2021-01-16] MEDS: NYSTATIN 500,000 UNIT/5 ML UDCUP SWISH/SWAL SCH ×2 (09:42→12:32)
[2021-01-16] MEDS: carvediloL 6.25 MG TABLET PO SCH (09:42)
[2021-01-16] MEDS: AMIODARONE 200 MG TABLET PO SCH (09:42)
[2021-01-16] MEDS: APIXABAN 5 MG TABLET PO SCH (09:42)
[2021-01-16] MEDS: CHOLECALCIFEROL 5,000 UNIT TABLET PO SCH (09:42)
[2021-01-16] MEDS: FUROSEMIDE 40 MG TABLET PO SCH (09:42)
[2021-01-16] MEDS: DULoxetine 30 MG CAPSULE PO SCH (09:42)
[2021-01-16] MEDS: ASPIRIN EC 81 MG TABLET PO SCH (09:42)
[2021-01-16] MEDS ORDERED: LIDOCAINE 5% PATCH TRANSDERM SCH (13:00)
[2021-01-16 16:17] VITALS: BP 114/64
== END 2021-01-16 16:25 | disposition home health service (06) | DRG 478 ==
LOC: N.ED 15:31 → N.EDINP 15:31 → SUATTDRO 18:02 → N.5E 20:57
PROVIDERS: ADMIT Internal Medicine; ATTEND Internal Medicine

== ENCOUNTER 2022-12-03 14:55 | Inpatient (IN) ==
[2022-12-03] MEDS ORDERED: ONDANSETRON 4 MG/2 ML VIAL IV STA (15:37)
[2022-12-03] MEDS ORDERED: HYDROmorphone 1 MG/1 ML SYRINGE IV STA (15:37)
[2022-12-03 16:02] LABS: Basophils # 0.1 10*3/uL (0.0-0.2); Basophils % 1.1 % (0.0-0.8); Eosinophils # 0.1 10*3/uL (0.0-0.87); Eosinophils % 1.3 % (0.00-10.9); Hematocrit 33.4 VOL% (35.7-47.0); Hemoglobin 9.9 GM/DL (12.0-16.0); Immature Granulocytes % 0.4 %; Immature Granulocytes Absolute 0.02 #; Lymphocytes # 1.3 10*3/uL (1.4-4.0); Lymphocytes % 28.4 % (21.3-54.2); Mean Corpuscular HGB Conc 29.6 GM/DL (32-36); Mean Corpuscular Volume 98.8 FL (87-102); Monocytes # 0.4 10*3/uL (0.11-0.8); Monocytes % 7.7 % (1.7-12.7); Neutrophils % 61.1 % (38.7-73.9); Platelet Count 195 T/CUMM (130-400); Red Blood Count 3.38 MC/CUMM (3.8-5.5); Red Cell Distribution Width 15.9 % (9.3-17.3); White Blood Count 4.55 T/CUMM (4-12)
[2022-12-03 16:13] LABS: Alanine Aminotransferase 15 U/L (13-56); Albumin 3.1 G/DL (3.4-5.0); Alkaline Phosphatase 106 U/L (45-117); Aspartate Amino Transferase 11 U/L (0-37); Bilirubin,Total < 0.39 MG/DL (0.20-1.00); Blood Urea Nitrogen 24 MG/DL (7-18); Calcium 8.6 MG/DL (8.5-10.1); Carbon Dioxide 28 MMOL/L (21-32); Chloride 106 MMOL/L (98-107); Glucose 102 MG/DL (74-106); Osmolality,Calculated 278.7 MOS/KG (273-304); Potassium 4.3 MMOL/L (3.5-5.1); Sodium 138 MMOL/L (136-145); Total Protein 6.1 G/DL (6.4-8.2)
[2022-12-03 16:55] LABS: PT Patient Result 10.9 SECS (10.1-12.1)
[2022-12-03] MEDS ORDERED: SODIUM CHLORIDE 0.9% 1,000 ML IV STA (17:27)
[2022-12-03] MEDS ORDERED: SIMETHICONE CHEW 125 MG TABLET PO PRN (20:35)
[2022-12-03] MEDS ORDERED: ONDANSETRON 4 MG/2 ML VIAL IV PRN (20:35)
[2022-12-04] MEDS: DULoxetine 30 MG CAPSULE PO SCH ×2 (01:04→20:52)
[2022-12-04] MEDS: traZODone 50 MG TABLET PO SCH ×2 (01:04→20:52)
[2022-12-04] MEDS: DOCUSATE SODIUM 100 MG CAPSULE PO SCH ×3 (01:05→20:52)
[2022-12-04] MEDS: AMITRIPTYLINE 50 MG TABLET PO SCH ×2 (01:05→20:52)
[2022-12-04 05:07] LABS: Basophils # 0.1 10*3/uL (0.0-0.2); Basophils % 1.1 % (0.0-0.8); Eosinophils # 0.1 10*3/uL (0.0-0.87); Eosinophils % 1.3 % (0.00-10.9); Hematocrit 31.1 VOL% (35.7-47.0); Hemoglobin 8.9 GM/DL (12.0-16.0); Immature Granulocytes % 0.2 %; Immature Granulocytes Absolute 0.01 #; Lymphocytes # 1.3 10*3/uL (1.4-4.0); Mean Corpuscular HGB Conc 28.6 GM/DL (32-36); Mean Platelet Volume 8.5 FL (9.6-12.0); Monocytes # 0.4 10*3/uL (0.11-0.8); Monocytes % 9.4 % (1.7-12.7); Platelet Count 236 T/CUMM (130-400); Red Blood Count 3.08 MC/CUMM (3.8-5.5); White Blood Count 4.45 T/CUMM (4-12)
[2022-12-04 05:26] LABS: % Iron Saturation 7.5 % (18-50); Ferritin 7.6 ng/mL (8-252)
[2022-12-04 05:28] LABS: Folate 12.75 NG/ML (5.38-24.0); Vitamin B12 665 PG/ML (211-911)
[2022-12-04 05:31] LABS: Calcium 7.9 MG/DL (8.5-10.1); Osmolality,Calculated 287.1 MOS/KG (273-304); Potassium 4.1 MMOL/L (3.5-5.1); Thyroid Stimulating Hormone 7.79 uIU/ml (0.358-3.74)
[2022-12-04] MEDS: LEVOTHYROXINE 100 MCG TABLET PO SCH (05:54)
[2022-12-04 06:17] LABS: Sedimentation Rate-Westergren 59 MM/HR (0-30)
[2022-12-04 08:03] LABS: Hemoglobin A1 (Alkaline) 97.4 % (96.5-98.5); Hemoglobin A2 (Alkaline) 2.6 % (1.5-3.5)
[2022-12-04] MEDS: GABAPENTIN 400 MG CAPSULE PO SCH ×3 (08:51→20:52)
[2022-12-04] MEDS: ASPIRIN EC 81 MG TABLET PO SCH (08:52)
[2022-12-04] MEDS: APIXABAN 5 MG TABLET PO SCH ×2 (08:52→20:52)
[2022-12-04] MEDS: FERROUS SULFATE 325 MG TABLET PO SCH ×2 (08:52→20:52)
[2022-12-04] MEDS: AMIODARONE 200 MG TABLET PO SCH (08:52)
[2022-12-04] MEDS: CALCIUM (CARBONATE)/VITAMIN D 600 MG-400 UNIT TABLET PO SCH (08:53)
[2022-12-04] MEDS: PANTOPRAZOLE 40 MG TABLET PO SCH (08:53)
[2022-12-04] MEDS: SODIUM CHLORIDE 0.9% 1,000 ML IV SCH (08:55)
[2022-12-04] MEDS ORDERED: METOPROLOL SUCCINATE XL 50 MG TABLET PO SCH (09:00)
[2022-12-04] MEDS: ACETAMINOPHEN 325 MG TABLET PO PRN (13:24)
[2022-12-04] MEDS: DESITIN 4OZ/NYSTATIN 15 GRAM MIXTURE PASTE TOP SCH ×2 (16:30→20:54)
[2022-12-04] MEDS: [UNRECOGNIZED DRUG - OTHER] SUBCUT SCH (20:52)
[2022-12-05] MEDS: SODIUM CHLORIDE 0.9% 1,000 ML IV SCH ×2 (00:58→12:23)
[2022-12-05] MEDS: LEVOTHYROXINE 100 MCG TABLET PO SCH (05:28)
[2022-12-05 05:36] LABS: Basophils % 0.5 % (0.0-0.8); Eosinophils # 0.1 10*3/uL (0.0-0.87); Eosinophils % 1.9 % (0.00-10.9); Hematocrit 29.7 VOL% (35.7-47.0); Hemoglobin 8.6 GM/DL (12.0-16.0); Immature Granulocytes % 0.5 %; Immature Granulocytes Absolute 0.02 #; Lymphocytes # 1.1 10*3/uL (1.4-4.0); Mean Corpuscular Volume 102.4 FL (87-102); Mean Platelet Volume 8.5 FL (9.6-12.0); Monocytes # 0.4 10*3/uL (0.11-0.8); Monocytes % 10.6 % (1.7-12.7); Neutrophils % 55.5 % (38.7-73.9); Platelet Count 212 T/CUMM (130-400); Red Cell Distribution Width 15.9 % (9.3-17.3); White Blood Count 3.68 T/CUMM (4-12)
[2022-12-05 05:50] LABS: Calcium 7.9 MG/DL (8.5-10.1); Osmolality,Calculated 280.4 MOS/KG (273-304); Potassium 4.1 MMOL/L (3.5-5.1)
[2022-12-05 05:52] LABS: Risk Ratio 2.18; VLDL Cholesterol 10.2 MG/DL
[2022-12-05] MEDS: DOCUSATE SODIUM 100 MG CAPSULE PO SCH ×2 (09:35→21:48)
[2022-12-05] MEDS: ASPIRIN EC 81 MG TABLET PO SCH (09:35)
[2022-12-05] MEDS: CALCIUM (CARBONATE)/VITAMIN D 600 MG-400 UNIT TABLET PO SCH (09:35)
[2022-12-05] MEDS: GABAPENTIN 400 MG CAPSULE PO SCH ×3 (09:35→21:49)
[2022-12-05] MEDS: APIXABAN 5 MG TABLET PO SCH ×2 (09:36→21:48)
[2022-12-05] MEDS: METOPROLOL SUCCINATE XL 25 MG TABLET PO SCH (09:36)
[2022-12-05] MEDS: FERROUS SULFATE 325 MG TABLET PO SCH ×2 (09:36→21:48)
[2022-12-05] MEDS: AMIODARONE 200 MG TABLET PO SCH (09:36)
[2022-12-05] MEDS: PANTOPRAZOLE 40 MG TABLET PO SCH (09:36)
[2022-12-05] MEDS: DESITIN 4OZ/NYSTATIN 15 GRAM MIXTURE PASTE TOP SCH ×2 (09:39→21:49)
[2022-12-05] MEDS: ACETAMINOPHEN 325 MG TABLET PO PRN ×2 (12:40→21:48)
[2022-12-05] MEDS: AMITRIPTYLINE 50 MG TABLET PO SCH (21:48)
[2022-12-05] MEDS: DULoxetine 30 MG CAPSULE PO SCH (21:48)
[2022-12-05] MEDS: traZODone 50 MG TABLET PO SCH (21:48)
[2022-12-05] MEDS: [UNRECOGNIZED DRUG - OTHER] SUBCUT SCH (21:49)
[2022-12-06] MEDS: SODIUM CHLORIDE 0.9% 1,000 ML IV SCH ×2 (02:55→13:43)
[2022-12-06] MEDS: LEVOTHYROXINE 100 MCG TABLET PO SCH (05:12)
[2022-12-06] MEDS: AMIODARONE 200 MG TABLET PO SCH (08:24)
[2022-12-06] MEDS: FERROUS SULFATE 325 MG TABLET PO SCH (08:24)
[2022-12-06] MEDS: GABAPENTIN 400 MG CAPSULE PO SCH (08:24)
[2022-12-06] MEDS: DOCUSATE SODIUM 100 MG CAPSULE PO SCH (08:24)
[2022-12-06] MEDS: PANTOPRAZOLE 40 MG TABLET PO SCH (08:24)
[2022-12-06] MEDS: APIXABAN 5 MG TABLET PO SCH (08:24)
[2022-12-06] MEDS: CALCIUM (CARBONATE)/VITAMIN D 600 MG-400 UNIT TABLET PO SCH (08:24)
[2022-12-06] MEDS: METOPROLOL SUCCINATE XL 25 MG TABLET PO SCH (08:25)
[2022-12-06] MEDS: ASPIRIN EC 81 MG TABLET PO SCH (08:25)
[2022-12-06] MEDS: DESITIN 4OZ/NYSTATIN 15 GRAM MIXTURE PASTE TOP SCH (08:27)
[2022-12-06] MEDS ORDERED: FERRIC GLUCONATE COMPLEX 125 MG in SODIUM CHLORIDE 0.9% 100 ML IV SCH (11:00)
[2022-12-06 11:46] VITALS: BP 127/73
[2022-12-10] MEDS ORDERED: CHOLECALCIFEROL 5,000 UNIT TABLET PO SCH (09:00)
== END 2022-12-06 14:15 | disposition home or self-care (01) | DRG 312 ==
LOC: N.EDINP 14:55 → N.ED 14:55 → N.EDINP 22:30 → N.2W 23:36 → SUATTDRO 12-04 12:58 → N.3E 12-04 14:28
PROVIDERS: ADMIT Internal Medicine; ATTEND Internal Medicine